=== PATIENT | male | born 1995 | race Caucasian/White ===

== ENCOUNTER 2024-11-18 00:45 | Emergency (ER) | payer OTHER ==
[2024-11-18 01:01] VITALS: TEMP 97.7
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
[2024-11-18] MEDS ORDERED: TYLENOL 325 MG ONE (01:18)
[2024-11-18] MEDS ORDERED: MOTRIN 600 MG ONE (01:18)
[2024-11-18] MEDS: TYLENOL 325 MG PO ONE (01:19)
[2024-11-18] MEDS: MOTRIN 600 MG PO ONE (01:19)
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
[2024-11-18 03:18] VITALS: BP 115/60; PULSE 71; RESP 16
[2024-11-18 03:20] VITALS: O2SAT 95
== END 2024-11-18 03:31 | disposition home or self-care (01) ==
LOC: ED 00:45
DX: S00.12XA Contusion of left eyelid and periocular area, initial encounter (principal); S60.222A Contusion of left hand, initial encounter; S63.501A Unspecified sprain of right wrist, initial encounter; Y04.2XXA Assault by strike against or bumped into by another person, initial encounter; Z72.0 Tobacco use

== ENCOUNTER 2025-01-28 17:35 | Emergency (ER) | payer OTHER ==
[2025-01-28 17:48] VITALS: TEMP 98.4
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
[2025-01-28 19:08] VITALS: RESP 18
[2025-01-28] MEDS ORDERED: TYLENOL 325 MG ONE (19:14)
[2025-01-28] MEDS ORDERED: MOTRIN 600 MG ONE (19:14)
[2025-01-28] MEDS: TYLENOL 325 MG PO ONE (19:17)
[2025-01-28] MEDS: MOTRIN 600 MG PO ONE (19:17)
[2025-01-28 19:59] VITALS: BP 93/74; PULSE 71; O2SAT 96
--- NOTE | 2025-01-28 22:06 | XRAY ---
Indication: Pain following fall from height 2 days ago. Paraspinal muscle swelling. Multiple contiguous axial images obtained through the cervical spine. Sagittal and coronal reformatted images obtained. Comparison: None Cervical lordotic straightening, positional versus paraspinal spasm. No acute fracture, suspicious bone lesions, or spinal canal stenosis. Facets are symmetric. Visualized noncontrasted soft tissues demonstrates enlarged palatine tonsils narrowing the oropharynx. Base of brain unremarkable. CT thoracic spine reported separately. Impression: Negative acute fracture/subluxation. Cervical lordotic straightening, positional versus paraspinal spasm. Incidental prominent palatine tonsils.
--- NOTE | 2025-01-28 22:08 | XRAY ---
Indication: Pain following fall from height 2 days ago. Paraspinal muscle swelling. Multiple contiguous axial images obtained through the thoracic spine. Sagittal and coronal reformatted images obtained. No acute fracture, suspicious bone lesions, or spinal canal stenosis. T6 vertebral body demonstrates incidental 1 cm vertebral hemangioma. Sagittal and coronal reformatted images demonstrate normal alignment with vertebral body heights/disc spaces maintained. Visualized noncontrasted soft tissues are unremarkable. Impression: Incidental T6 vertebral hemangioma. Remaining CT thoracic spine is normal.
== END 2025-01-28 20:00 | disposition home or self-care (01) ==
LOC: ED 17:35
DX: M54.2 Cervicalgia (principal); W10.9XXA Fall (on) (from) unspecified stairs and steps, initial encounter; M54.9 Dorsalgia, unspecified; F17.200 Nicotine dependence, unspecified, uncomplicated